=== PATIENT | male | born 1960 | race Two or more races ===

== ENCOUNTER 2019-09-05 17:06 | Emergency (ER) | payer OTHER ==
[~2019-09-05] VITALS: Ht 175.3 cm; Wt 90.7 kg
[2019-09-05] MEDS ORDERED: ACETAMINOPHEN/CODEINE#3 (300/30mg) TAB PO ONE (19:15)
[2019-09-05] MEDS ORDERED: cefTRIAXone SOD 1,000 MG VL IM ONE (19:15)
[2019-09-05] MEDS ORDERED: TETANUS-DIPTH-ACEL PERTUSSIS 0.5ML SYRG IM ONE (19:15)
[2019-09-05 19:57] VITALS: BP 138/77
== END 2019-09-05 19:57 | disposition home or self-care (01) ==
LOC: ER 17:06
DX: S62.633A Displaced fracture of distal phalanx of left middle finger, initial encounter for closed fracture (principal); S61.212A Laceration without foreign body of right middle finger without damage to nail, initial encounter; Z23 Encounter for immunization; W23.0XXA Caught, crushed, jammed, or pinched between moving objects, initial encounter; Y93.89 Activity, other specified; Y92.59 Other trade areas as the place of occurrence of the external cause; Y99.8 Other external cause status
CPT/HCPCS: 12001; 29130; 73140; 90471; 90715; 96372; 99283; J0696